=== PATIENT | male | born 1950 | race Hispanic/Latino ===

== ENCOUNTER 2022-11-24 09:03 | Outpatient (CLI) | payer OTHER ==
[2022-11-24] MEDS ORDERED: Iopamidol 300 61% 100 ML VIAL FS ONE (09:15)
== END 2022-11-24 09:04 | disposition home or self-care (01) ==
LOC: CSHCT 09:03
PROVIDERS: ATTEND Urology
DX: N40.1 Benign prostatic hyperplasia with lower urinary tract symptoms (principal); R97.20 Elevated prostate specific antigen [PSA]; Z72.0 Tobacco use; Z87.440 Personal history of urinary (tract) infections; Z98.890 Other specified postprocedural states; R59.0 Localized enlarged lymph nodes; R91.8 Other nonspecific abnormal finding of lung field; N32.89 Other specified disorders of bladder; D18.03 Hemangioma of intra-abdominal structures; M16.0 Bilateral primary osteoarthritis of hip; M25.751 Osteophyte, right hip
CPT/HCPCS: 74178; 82565

== ENCOUNTER 2023-02-04 08:32 | Outpatient (CLI) | payer OTHER | END 2023-02-04 08:33 | disposition home or self-care (01) | LOC: CSHMRI 08:32 | PROVIDERS: ATTEND Urology | DX: R97.20 Elevated prostate specific antigen [PSA] (principal); R59.1 Generalized enlarged lymph nodes; N40.0 Benign prostatic hyperplasia without lower urinary tract symptoms; M16.0 Bilateral primary osteoarthritis of hip; M25.852 Other specified joint disorders, left hip; M25.851 Other specified joint disorders, right hip | CPT/HCPCS: 72197 ==

== ENCOUNTER 2023-07-01 13:32 | Outpatient (CLI) | payer OTHER | END 2023-07-01 13:33 | disposition home or self-care (01) | LOC: CSHULT 13:32 | PROVIDERS: ATTEND Urology | DX: N40.1 Benign prostatic hyperplasia with lower urinary tract symptoms (principal); Z87.438 Personal history of other diseases of male genital organs; N49.2 Inflammatory disorders of scrotum; N50.89 Other specified disorders of the male genital organs | CPT/HCPCS: 76870 ==

== ENCOUNTER 2025-06-18 05:33 | Day surgery (SDC) | payer OTHER, SELFPAY ==
[2025-06-11 11:26] VITALS: BMI 25.2
[2025-06-18] MEDS ORDERED: Bupivacaine/Epinephrine 0.25% 30 ML VIAL ONE (06:59)
[2025-06-18] MEDS ORDERED: CEFAZOLIN 2 GM VIAL ONE (06:59)
[2025-06-18] MEDS ORDERED: Lidocaine 1% PF 5 ML VIAL ONE (07:13)
[2025-06-18] MEDS ORDERED: PROPOFOL 20 ML ONE (07:13)
[2025-06-18] MEDS ORDERED: Rocuronium Bromide 10 MG/ML (10ML VIAL) ONE (07:13)
[2025-06-18] MEDS ORDERED: Ondansetron PF 4 MG/2 ML Vial ONE (08:42)
[2025-06-18] MEDS ORDERED: SUGAMMADEX SODIUM 200 MG/2 ML VIAL ONE (08:42)
[2025-06-18] MEDS ORDERED: HYDROcodone/Acetaminophen 5/325 mg Tablet ONE (10:23)
== END 2025-06-18 10:48 | disposition home or self-care (01) ==
LOC: CSHSDC 05:33
PROVIDERS: ATTEND Student in an Organized Health Care Education/Training Program
PROC: 0YQ54ZZ Repair Right Inguinal Region, Percutaneous Endoscopic Approach (ICD-10-PCS; principal; 2025-06-18)
DX: K40.30 Unilateral inguinal hernia, with obstruction, without gangrene, not specified as recurrent (principal); D17.6 Benign lipomatous neoplasm of spermatic cord; I10 Essential (primary) hypertension; E11.9 Type 2 diabetes mellitus without complications; E78.5 Hyperlipidemia, unspecified; F41.9 Anxiety disorder, unspecified; F17.200 Nicotine dependence, unspecified, uncomplicated; Z79.4 Long term (current) use of insulin; Z79.84 Long term (current) use of oral hypoglycemic drugs; Z79.899 Other long term (current) drug therapy
CPT/HCPCS: 36416; C1781; J2405; J2704; J3010; S2900